=== PATIENT | male | born 1970 | race Caucasian/White ===

== ENCOUNTER 2017-09-18 12:08 | Day surgery (SDC) | payer OTHER ==
[2017-09-18] MEDS ORDERED: NS 1,000 ML IV (13:00)
[2017-09-18] MEDS ORDERED: PROPOFOL 200 MG/20 ML VIAL As Ordered ×2 (13:33→14:16)
== END 2017-09-18 15:03 | disposition home or self-care (01) ==
LOC: M OPP 12:08
DX: Z12.11 Encounter for screening for malignant neoplasm of colon (principal); D12.5 Benign neoplasm of sigmoid colon; D12.2 Benign neoplasm of ascending colon; C64.1 Malignant neoplasm of right kidney, except renal pelvis; M10.9 Gout, unspecified; N18.3 Chronic kidney disease, stage 3 (moderate); Z79.899 Other long term (current) drug therapy; Z80.3 Family history of malignant neoplasm of breast
CPT/HCPCS: 45385

== ENCOUNTER → 2017-11-10 | Outpatient (REF) | payer OTHER ==
[2017-11-10 12:30] LABS: PTH INTACT 41.9 PG/ML (18.5-88.0); TOTAL 25(OH) VITAMIN D 27.3 NG/ML (30.0-100.0)
[2017-11-10 12:59] LABS: ALBUMIN/GLOBULIN RATIO 1.18 (1.00-1.93); ALKALINE PHOSPHATASE 69 U/L (45-117); ALT/SGPT 60 U/L (12-78); ANION GAP 9 MEQ/L (8-16); AST/SGOT 30 U/L (7-37); BILIRUBIN,TOTAL 0.8 MG/DL (0.2-1.0); BLOOD UREA NITROGEN 19 MG/DL (7-18); C REACTIVE PROTEIN QUANTITATIV 0.66 MG/DL (0.00-0.30); CALCIUM LEVEL 8.8 MG/DL (8.5-10.1); CARBON DIOXIDE LEVEL 30 MEQ/L (21-32); CHLORIDE LEVEL 106 MEQ/L (98-107); CHOLESTEROL LEVEL 176 MG/DL (<200); CPK CREATINE PHOSPHOKINASE 178 U/L (39-308); CREATININE FOR GFR 1.45 MG/DL (0.70-1.30); FREE T4 0.87 NG/DL (0.76-1.46); GLOMERULAR FILTRATION RATE 55.1 (>60); GLUCOSE, FASTING 91 MG/DL (70-100); HDL CHOLESTEROL 44 MG/DL (>40); NON-HDL-C 132 MG/DL; POTASSIUM SERUM 4.5 MEQ/L (3.5-5.1); PSA SCREENING 0.54 NG/ML (< 4.0); SODIUM LEVEL 145 MEQ/L (136-145); TOTAL PROTEIN 7.4 GM/DL (6.4-8.2); TRIGLYCERIDES LEVEL 135 MG/DL (<150); URIC ACID 8.1 MG/DL (3.5-7.2)
== END ==
LOC: M SFHCPLAZ 09:07
DX: E78.5 Hyperlipidemia, unspecified (principal); E55.9 Vitamin D deficiency, unspecified; Z12.5 Encounter for screening for malignant neoplasm of prostate; M10.9 Gout, unspecified

== ENCOUNTER → 2018-04-02 | Outpatient (REF) | payer OTHER ==
[~2018-04-02] MED LIST: MULT1TAB10 PO; ULOR80TA PO; VITA100067 PO
[2018-04-02 14:05] LABS: ALBUMIN 3.9 GM/DL (3.2-5.2); CALCIUM LEVEL 8.9 MG/DL (8.5-10.1); CREATININE FOR GFR 1.43 MG/DL (0.70-1.30); PHOSPHORUS LEVEL 3.2 MG/DL (2.5-4.9); POTASSIUM SERUM 3.7 MEQ/L (3.5-5.1); URIC ACID 4.5 MG/DL (3.5-7.2)
== END ==
LOC: M SFHCPLAZ 13:12
PROVIDERS: ATTEND Family Medicine
DX: M10.9 Gout, unspecified (principal)

== ENCOUNTER → 2018-04-26 | Outpatient (CLI) | payer OTHER ==
[2018-04-26 19:23] LABS: BASO % 0.2 % (0.0-1.0); HEMATOCRIT 42.4 % (42.0-52.0); HEMOGLOBIN 14.6 g/dl (13.5-17.5); LYMPH # 1.1 10^3/uL (1.5-4.5); LYMPH % 12.8 % (24.0-44.0); MEAN CORPUSCULAR HEMOGLOBIN 29.9 pg (27.0-33.0); MEAN CORPUSCULAR HGB CONC 34.4 g/dl (32.0-36.5); MEAN CORPUSCULAR VOLUME 86.9 fl (80.0-96.0); MONO # 0.9 10^3/uL (0.0-0.8); MONO % 9.9 % (0.0-5.0); NEUTROPHILS # 6.8 10^3/uL (1.8-7.7); NEUTROPHILS % 76.3 % (36.0-66.0); PLATELET COUNT, AUTOMATED 214 10^3/uL (150-450); RED BLOOD COUNT 4.88 10^6/uL (4.30-6.10); WHITE BLOOD COUNT 8.9 10^3/uL (4.0-10.0)
[2018-04-26 19:50] LABS: ALT/SGPT 43 U/L (12-78); BILIRUBIN,TOTAL 0.4 MG/DL (0.2-1.0); BLOOD UREA NITROGEN 37 MG/DL (7-18); C REACTIVE PROTEIN QUANTITATIV < 0.30 MG/DL (0.00-0.30); CALCIUM LEVEL 9.1 MG/DL (8.5-10.1); CARBON DIOXIDE LEVEL 28 MEQ/L (21-32); CHLORIDE LEVEL 101 MEQ/L (98-107); CREATININE FOR GFR 1.47 MG/DL (0.70-1.30); GLOMERULAR FILTRATION RATE 54.2 (>60); GLUCOSE, FASTING 91 MG/DL (70-100); POTASSIUM SERUM 4.4 MEQ/L (3.5-5.1); RHEUMATOID FACTOR QUANT < 10.0 IU/ML (<15.0); SODIUM LEVEL 138 MEQ/L (136-145); TOTAL PROTEIN 7.4 GM/DL (6.4-8.2)
[2018-04-26 20:00] LABS: ERYTHROCYTE SEDIMENTATION RATE 11 mm/hr (0-15)
[2018-04-29 00:10] LABS: ANTINUCLEAR ANTIBODIES DIRECT Negative (Negative); CYCLIC CITRULLINATED PEPTIDE 7 units (0-19); Lyme Disease IgG/IgM Antibodie <0.91 ISR (0.00-0.90); Lyme Disease IgM Ab Quantitati <0.80 index (0.00-0.79)
== END ==
LOC: M LAB 17:45
PROVIDERS: ATTEND Nurse Practitioner Family
DX: R74.0 Nonspecific elevation of levels of transaminase and lactic acid dehydrogenase [LDH] (principal)

== ENCOUNTER 2018-05-07 15:34 | Inpatient (IN) | payer OTHER ==
[~2018-05-07] VITALS: Ht 184.2 cm; Wt 108.2 kg
[~2018-05-07 15:34] MED LIST changes: -DICL1GEL TOP; -PRED25TA PO
[2018-05-07] MEDS ORDERED: ONDANSETRON 4MG/2ML VIAL (J2405) IV PRN (16:00)
[2018-05-07] MEDS ORDERED: zolPIDEM TARTRATE 5 MG TAB PO PRN (16:00)
[2018-05-07] MEDS ORDERED: ACETAMINOPHEN 500 MG TAB PO PRN (16:00)
[2018-05-07] MEDS ORDERED: LIDOCAINE 1% MDV 20ML VIAL As Ordered ONE (16:27)
[2018-05-07 17:09] VITALS: BP 140/80
[2018-05-07 17:58] LABS: BASO % 0.4 % (0.0-1.0); EOS # 0.1 10^3/uL (0.0-0.50); EOS % 0.7 % (0.0-3.0); HEMATOCRIT 45.6 % (42.0-52.0); HEMOGLOBIN 15.6 g/dl (13.5-17.5); LYMPH # 1.3 10^3/uL (1.5-4.5); LYMPH % 15.8 % (24.0-44.0); MEAN CORPUSCULAR HEMOGLOBIN 29.8 pg (27.0-33.0); MEAN CORPUSCULAR HGB CONC 34.2 g/dl (32.0-36.5); MEAN CORPUSCULAR VOLUME 87.2 fl (80.0-96.0); MONO # 0.7 10^3/uL (0.0-0.8); MONO % 8.1 % (0.0-5.0); NEUTROPHILS % 74.1 % (36.0-66.0); PLATELET COUNT, AUTOMATED 181 10^3/uL (150-450); RED BLOOD COUNT 5.23 10^6/uL (4.30-6.10); WHITE BLOOD COUNT 8.1 10^3/uL (4.0-10.0)
[2018-05-07 18:13] LABS: BILIRUBIN,TOTAL 0.8 MG/DL (0.2-1.0); CALCIUM LEVEL 8.8 MG/DL (8.5-10.1); CREATININE FOR GFR 1.54 MG/DL (0.70-1.30); GLOMERULAR FILTRATION RATE 51.4 (>60); PHOSPHORUS LEVEL 3.9 MG/DL (2.5-4.9); POTASSIUM SERUM 4.1 MEQ/L (3.5-5.1); TOTAL PROTEIN 7.6 GM/DL (6.4-8.2)
[2018-05-07 19:18] LABS: ERYTHROCYTE SEDIMENTATION RATE 9 mm/hr (0-15)
[2018-05-07 20:00] VITALS: BP 120/62
[2018-05-07] MEDS: PERCOCET 5MG/325MG TAB PO PRN (21:00)
[2018-05-08 04:00] VITALS: BP 127/72
[2018-05-08] MEDS: PERCOCET 5MG/325MG TAB PO PRN ×4 (04:08→21:40)
[2018-05-08 04:59] LABS: BASO % 0.3 % (0.0-1.0); EOS # 0.1 10^3/uL (0.0-0.50); EOS % 1.2 % (0.0-3.0); HEMATOCRIT 39.6 % (42.0-52.0); HEMOGLOBIN 13.2 g/dl (13.5-17.5); LYMPH # 1.2 10^3/uL (1.5-4.5); LYMPH % 19.3 % (24.0-44.0); MEAN CORPUSCULAR HEMOGLOBIN 29.5 pg (27.0-33.0); MEAN CORPUSCULAR HGB CONC 33.3 g/dl (32.0-36.5); MEAN CORPUSCULAR VOLUME 88.6 fl (80.0-96.0); MONO # 0.6 10^3/uL (0.0-0.8); MONO % 10.6 % (0.0-5.0); NEUTROPHILS # 4.1 10^3/uL (1.8-7.7); NEUTROPHILS % 67.8 % (36.0-66.0); PLATELET COUNT, AUTOMATED 152 10^3/uL (150-450); RED BLOOD COUNT 4.47 10^6/uL (4.30-6.10)
[2018-05-08 05:24] LABS: ERYTHROCYTE SEDIMENTATION RATE 22 mm/hr (0-15)
[2018-05-08 05:30] LABS: ALBUMIN 3.1 GM/DL (3.2-5.2); BILIRUBIN,TOTAL 0.4 MG/DL (0.2-1.0); C REACTIVE PROTEIN QUANTITATIV 1.93 MG/DL (0.00-0.30); CALCIUM LEVEL 8.5 MG/DL (8.5-10.1); CREATININE FOR GFR 1.52 MG/DL (0.70-1.30); GLOMERULAR FILTRATION RATE 52.2 (>60); POTASSIUM SERUM 4.2 MEQ/L (3.5-5.1); TOTAL PROTEIN 6.4 GM/DL (6.4-8.2)
[2018-05-08 08:00] VITALS: BP 133/86
[2018-05-08] MEDS: FEBUXOSTAT 40 MG TABLET (ULORIC) PO SCH (09:11)
[2018-05-08] MEDS: ENOXAPARIN 30 MG/0.3 ML SYR (J1650) SC SCH (09:12)
--- NOTE | 2018-05-08 15:51 | IPNPDOC ---
Subjective Date Seen The patient was seen on 05/08/18. Subjective Chief Complaint/HPI Knee pain Events since last encounter Keanu reports that his knee is a little better than when he was admitted. We are still waiting for the results of the joint cx before further treatment can be definitively planned. General: Reports: Normal Appetite Constitutional: Denies: Chills, Fever Pulmonary: Denies: Cough Cardiovascular: Denies: Chest Pain, Palpitations Genitourinary: Denies: Dysuria Musculoskeletal: Reports: Joint Pain (knee pain, specifically right over the patella and the quadricepts attachment) Psych: Reports: Mood Normal Objective Physical Examination General Exam: Positive: No Acute Distress Eye Exam: Positive: Conjunctiva & lids normal; Negative: Sclera icteric ENT Exam: Positive: Mucous membr. moist/pink Neck Exam: Negative: Lymphadenopathy Chest Exam: Positive: Clear to auscultation, Normal air movement Heart Exam: Positive: Rate Normal, Normal S1, Normal S2; Negative: Murmurs Abdomen Exam: Positive: Normal bowel sounds, Soft; Negative: Tenderness Extremity Exam: Positive: Tenderness (over the patella), Swelling (most consistent with a pre-patellar bursitis); Negative: Edema Psych Exam: Positive: Mood NL, Oriented x 3 Assessment /Plan Problems (1) Knee pain, left Status: Acute Response to Treatment: Improving Discussed With: Patient Problem Specific Plan: Monitor Clinically, Repeat Labs Problem Text: His pain is a little improved today, but not all that much. We are trying to determine if this is a joint infection, a gouty flare, or even a pre-patellar bursitis. The culture of the aspirated fluid is still pending. For now we will try a topical analgesic patch over the area to see if it helps. Plan/VTE VTE Prophylaxis Ordered?: Yes (Lovenox) VS, I&O, 24H, Fishbone Vital Signs/I&O Vital Signs Date Time Temp Pulse Resp B/P (MAP) Pulse Ox O2 Delivery O2 Flow Rate FiO2 05/08/18 09:55 18 Room Air 05/08/18 08:00 97.0 60 133/86 (102) 05/08/18 04:00 99 I&O- Last 24 Hours up to 6 AM 05/08/18 06:00 Intake Total 900 ml Output Total 0 ml Balance 900 ml Laboratory Data 24H LABS Laboratory Tests 2 05/07/18 17:28: Immature Granulocyte % (Auto) 0.9, White Blood Count 8.1, Red Blood Count 5.23, Hemoglobin 15.6, Hematocrit 45.6, Mean Corpuscular Volume 87.2, Mean Corpuscular Hemoglobin 29.8, Mean Corpuscular Hemoglobin Concent 34.2, Red Cell Distribution Width 13.0, Platelet Count 181, Neutrophils (%) (Auto) 74.1H, Lymphocytes (%) (Auto) 15.8L, Monocytes (%) (Auto) 8.1H, Eosinophils (%) (Auto) 0.7, Basophils (%) (Auto) 0.4, Neutrophils # (Auto) 6.0, Lymphocytes # (Auto) 1.3L, Monocytes # (Auto) 0.7, Eosinophils # (Auto) 0.1, Basophils # (Auto) 0.0, Nucleated Red Blood Cells % (auto) 0.0, Erythrocyte Sedimentation Rate 9, Anion Gap 9, Glomerular Filtration Rate 51.4L, Uric Acid 5.3, Blood Urea Nitrogen 20H, Creatinine 1.54H, Sodium Level 139, Potassium Level 4.1, Chloride Level 101, Carbon Dioxide Level 29, Calcium Level 8.8, Phosphorus Level 3.9, Aspartate Amino Transf (AST/SGOT) 26, Alanine Aminotransferase (ALT/SGPT) 57, Lactate Dehydrogenase 222, Total Creatine Kinase 96, Alkaline Phosphatase 65, Total Bilirubin 0.8, Triglycerides Level 159H, Cholesterol Level 245H, Total Protein 7.6, Albumin 4.0, C-Reactive Protein, Quantitative 1.37H, Albumin/Globulin Ratio 1.11 05/08/18 04:14: Immature Granulocyte % (Auto) 0.8, White Blood Count 6.0, Red Blood Count 4.47, Hemoglobin 13.2#L, Hematocrit 39.6L, Mean Corpuscular Volume 88.6, Mean Corpuscular Hemoglobin 29.5, Mean Corpuscular Hemoglobin Concent 33.3, Red Cell Distribution Width 13.1, Platelet Count 152, Neutrophils (%) (Auto) 67.8H, Lymphocytes (%) (Auto) 19.3L, Monocytes (%) (Auto) 10.6H, Eosinophils (%) (Auto) 1.2, Basophils (%) (Auto) 0.3, Neutrophils # (Auto) 4.1, Lymphocytes # (Auto) 1.2L, Monocytes # (Auto) 0.6, Eosinophils # (Auto) 0.1, Basophils # (Auto) 0.0, Nucleated Red Blood Cells % (auto) 0.0, Erythrocyte Sedimentation Rate 22H, Anion Gap 4L, Glomerular Filtration Rate 52.2L, Blood Urea Nitrogen 32#H, Creatinine 1.52H, Sodium Level 140, Potassium Level 4.2, Chloride Level 106, Carbon Dioxide Level 30, Calcium Level 8.5, Aspartate Amino Transf (AST/SGOT) 17, Alanine Aminotransferase (ALT/SGPT) 41, Alkaline Phosphatase 64, Total Bilirubin 0.4, Total Protein 6.4, Albumin 3.1#L, C-Reactive Protein, Quantitative 1.93H, Albumin/Globulin Ratio 0.94L CBC/BMP Laboratory Tests 05/07/18 17:28 Red Blood Count 5.23, Mean Corpuscular Volume 87.2, Mean Corpuscular Hemoglobin 29.8, Mean Corpuscular Hemoglobin Concent 34.2, Red Cell Distribution Width 13.0, Neutrophils (%) (Auto) 74.1 H, Lymphocytes (%) (Auto) 15.8 L, Monocytes (%) (Auto) 8.1 H, Eosinophils (%) (Auto) 0.7, Basophils (%) (Auto) 0.4, Neutrophils # (Auto) 6.0, Lymphocytes # (Auto) 1.3 L, Monocytes # (Auto) 0.7, Eosinophils # (Auto) 0.1, Basophils # (Auto) 0.0, Calcium Level 8.8, Phosphorus Level 3.9, Aspartate Amino Transf (AST/SGOT) 26, Alanine Aminotransferase (ALT/SGPT) 57, Lactate Dehydrogenase 222, Total Creatine Kinase 96, Alkaline Phosphatase 65, Total Bilirubin 0.8, Triglycerides Level 159 H, Cholesterol Level 245 H, Total Protein 7.6, Albumin 4.0 05/08/18 04:14 Red Blood Count 4.47, Mean Corpuscular Volume 88.6, Mean Corpuscular Hemoglobin 29.5, Mean Corpuscular Hemoglobin Concent 33.3, Red Cell Distribution Width 13.1, Neutrophils (%) (Auto) 67.8 H, Lymphocytes (%) (Auto) 19.3 L, Monocytes (%) (Auto) 10.6 H, Eosinophils (%) (Auto) 1.2, Basophils (%) (Auto) 0.3, Neutrop hils # (Auto) 4.1, Lymphocytes # (Auto) 1.2 L, Monocytes # (Auto) 0.6, Eosinophils # (Auto) 0.1, Basophils # (Auto) 0.0, Calcium Level 8.5, Aspartate Amino Transf (AST/SGOT) 17, Alanine Aminotransferase (ALT/SGPT) 41, Alkaline Phosphatase 64, Total Bilirubin 0.4, Total Protein 6.4, Albumin 3.1 #L Microbiology Microbiology 05/07/18 Blood Culture, Received Pending 05/07/18 Blood Culture, Received Pending Frank Torres MD May 08, 2018 15:51
[2018-05-08 15:56] VITALS: BP 136/80
[2018-05-08] MEDS: DICLOFENAC EPOLAMINE 1.3 % PATCH TOP SCH (17:59)
[2018-05-08 20:00] VITALS: BP 157/95
[2018-05-09 04:00] VITALS: BP 126/94
[2018-05-09] MEDS: PERCOCET 5MG/325MG TAB PO PRN (04:59)
[2018-05-09] MEDS: DICLOFENAC EPOLAMINE 1.3 % PATCH TOP SCH (04:59)
[2018-05-09 05:47] LABS: BASO % 0.5 % (0.0-1.0); EOS # 0.1 10^3/uL (0.0-0.50); EOS % 1.6 % (0.0-3.0); HEMATOCRIT 41.2 % (42.0-52.0); HEMOGLOBIN 13.8 g/dl (13.5-17.5); LYMPH # 1.1 10^3/uL (1.5-4.5); LYMPH % 19.6 % (24.0-44.0); MEAN CORPUSCULAR HEMOGLOBIN 29.7 pg (27.0-33.0); MEAN CORPUSCULAR HGB CONC 33.5 g/dl (32.0-36.5); MEAN CORPUSCULAR VOLUME 88.8 fl (80.0-96.0); MONO # 0.6 10^3/uL (0.0-0.8); MONO % 9.5 % (0.0-5.0); NEUTROPHILS # 3.9 10^3/uL (1.8-7.7); NEUTROPHILS % 67.9 % (36.0-66.0); PLATELET COUNT, AUTOMATED 143 10^3/uL (150-450); RED BLOOD COUNT 4.64 10^6/uL (4.30-6.10); WHITE BLOOD COUNT 5.8 10^3/uL (4.0-10.0)
[2018-05-09 06:03] LABS: ALBUMIN 3.2 GM/DL (3.2-5.2); C REACTIVE PROTEIN QUANTITATIV 1.6 MG/DL (0.00-0.30); CALCIUM LEVEL 8.4 MG/DL (8.5-10.1); CREATININE FOR GFR 1.51 MG/DL (0.70-1.30); GLOMERULAR FILTRATION RATE 52.5 (>60); PHOSPHORUS LEVEL 3.2 MG/DL (2.5-4.9); POTASSIUM SERUM 4.6 MEQ/L (3.5-5.1)
[2018-05-09 06:13] LABS: ERYTHROCYTE SEDIMENTATION RATE 17 mm/hr (0-15)
[2018-05-09 08:00] VITALS: BP 128/70
[2018-05-09] MEDS: ENOXAPARIN 30 MG/0.3 ML SYR (J1650) SC SCH (09:00)
[2018-05-09] MEDS: FEBUXOSTAT 40 MG TABLET (ULORIC) PO SCH (09:19)
[2018-05-09] MEDS ORDERED: DICL1GEL TOP (12:53)
[2018-05-09] MEDS ORDERED: PRED25TA PO (12:53)
--- NOTE | 2018-05-09 13:03 | DS.PDOC ---
Discharge Summary General Date of Admission May 07, 2018 at 16:04 Date of Discharge 05/09/18 Primary Care Physician: Padilla Sharp M.D. Attending Physician: Frank Torres MD Specialist/Consultants Involve Interventional Radiology (tapped the joint before admission) Discharge Summary ADMITTING DIAGNOSES: 1. Synovitis of the left knee. 2. Gout. 3. History of renal cell carcinoma with CKD 3. 4. Obesity. 5. History of colonic polyps. 6. Vitamin D deficiency. 7. Hyperlipidemia. DISCHARGE DIAGNOSES: 1. Left prepatellar bursitis. 2. Gout. PROCEDURES PERFORMED DURING STAY: The knee was drained by interventional radiology just prior to admission. The culture of this fluid was used for clinical decision making. ADMISSION HISTORY: Mr. uL was admitted about one week after he received a joint injection for knee pain favoring acute monoarticular gouty flare. Please see the admission history and physical for the remaining details. HOSPITAL COURSE: The patient was sent to the hospital and his need to was tapped that fluid was cultured. While the culture was pending he was admitted. Fortunately that culture was negative by 48 hours. During the time he was admitted he became clear that a prepatellar bursitis was causing a significant portion of his pain. I do believe the patient originally started with a gouty flare, however, I think the injection in the office may have halted that. DISCHARGE CONDITION: Stable. FOLLOW-UP: Prior to discharge an appointment was scheduled with Dr. Sharp on May 18 at 9:45 AM. DIET: Renal low purine diet. ACTIVITY: As tolerated. DISCHARGE MEDICATIONS: Please see below. ALLERGIES: Please see below. LABORATORY DATA: Please see below. IMAGING: None during this admission specifically. Vital Signs/I&Os Vital Signs Date Time Temp Pulse Resp B/P (MAP) Pulse Ox O2 Delivery O2 Flow Rate FiO2 05/09/18 08:00 97.1 66 18 128/70 (89) 98 Room Air I&O- Last 24 Hours up to 6 AM 05/09/18 06:00 Intake Total 1580 ml Output Total 0 ml Balance 1580 ml Laboratory Data Labs 24H Laboratory Tests 2 05/09/18 04:49: Immature Granulocyte % (Auto) 0.9, White Blood Count 5.8, Red Blood Count 4.64, Hemoglobin 13.8, Hematocrit 41.2L, Mean Corpuscular Volume 88.8, Mean Corpuscular Hemoglobin 29.7, Mean Corpuscular Hemoglobin Concent 33.5, Red Cell Distribution Width 12.9, Platelet Count 143L, Neutrophils (%) (Auto) 67.9H, Lymphocytes (%) (Auto) 19.6L, Monocytes (%) (Auto) 9.5H, Eosinophils (%) (Auto) 1.6, Basophils (%) (Auto) 0.5, Neutrophils # (Auto) 3.9, Lymphocytes # (Auto) 1.1L, Monocytes # (Auto) 0.6, Eosinophils # (Auto) 0.1, Basophils # (Auto) 0.0, Nucleated Red Blood Cells % (auto) 0.0, Erythrocyte Sedimentation Rate 17H, Blood Urea Nitrogen 23H, Creatinine 1.51H, Sodium Level 140, Potassium Level 4.6, Chloride Level 105, Carbon Dioxide Level 31, Anion Gap 4L, Glomerular Filtration Rate 52.5L, Calcium Level 8.4L, Phosphorus Level 3.2, C-Reactive Protein, Quantitative 1.60H, Albumin 3.2 CBC/BMP Laboratory Tests 05/09/18 04:49 Red Blood Count 4.64, Mean Corpuscular Volume 88.8, Mean Corpuscular Hemoglobin 29.7, Mean Corpuscular Hemoglobin Concent 33.5, Red Cell Distribution Width 12.9, Neutrophils (%) (Auto) 67.9 H, Lymphocytes (%) (Auto) 19.6 L, Monocytes (%) (Auto) 9.5 H, Eosinophils (%) (Auto) 1.6, Basophils (%) (Auto) 0.5, Neutrophils # (Auto) 3.9, Lymphocytes # (Auto) 1.1 L, Monocytes # (Auto) 0.6, Eosinophils # (Auto) 0.1, Basophils # (Auto) 0.0, Anion Gap 4 L Microbiology Microbiology 05/07/18 Blood Culture - Preliminary, Resulted No growth after 24 hours . All specim... 05/07/18 Blood Culture - Preliminary, Resulted No growth after 24 hours . All specim... Discharge Medications Scheduled (Diclofenac Sodium) 3 % Gel, 1 APLCT TOP BID for to left knee Febuxostat (Uloric) 80 Mg Tab, 80 MG PO DAILY, (Reported) Multivitamins (Multivitamin Adults) 1 Tab Tab, 1 TAB PO DAILY, (Reported) Prednisone (Prednisone) 2.5 Mg Tab, 1 TAB PO DAILY Vitamin D (Vitamin D) 1,000 Unit Cap, 1,000 UNIT PO DAILY, (Reported) Allergies Coded Allergies: No Known Drug Allergy (Unverified Allergy, Unknown, 09/04/17) Frank Torres MD May 09, 2018 13:03
[2018-05-09] MEDS ORDERED: DICLOFENAC EPOLAMINE 1.3 % PATCH TOP ONE (14:00)
[2018-05-10 14:49] LABS: Lyme Disease IgG/IgM Antibodie <0.91 ISR (0.00-0.90); Lyme Disease IgM Ab Quantitati <0.80 index (0.00-0.79)
== END 2018-05-09 14:30 | disposition home or self-care (01) | DRG 351 ==
LOC: M PCU 16:04
PROVIDERS: ADMIT Family Medicine; ATTEND Family Medicine
DX: M70.42 Prepatellar bursitis, left knee (principal); E55.9 Vitamin D deficiency, unspecified; N18.3 Chronic kidney disease, stage 3 (moderate); M10.9 Gout, unspecified; E78.5 Hyperlipidemia, unspecified; E66.9 Obesity, unspecified; Z85.528 Personal history of other malignant neoplasm of kidney; Z79.899 Other long term (current) drug therapy

== ENCOUNTER → 2018-05-07 | Outpatient (CLI) | payer OTHER ==
[~2018-05-07] MED LIST changes: +DICL1GEL TOP; +PRED25TA PO
[2018-05-07 17:36] LABS: MUCIN CLOT TEST 4+ (4+)
[2018-05-07 17:41] LABS: CRYSTALS, BODY FLUID NONE SEEN (NONE SEEN); SOURCE, BODY FLUID CRYSTALS LFT KNEE
[2018-05-07 17:52] LABS: SOURCE, BODY FLUID GLUCOSE LFT KNEE; SOURCE, BODY FLUID TOT PROTEIN LFT KNEE; SOURCE, BODY FLUID URIC ACID LFT KNEE; URIC ACID, BODY FLUID 6.2 MG/DL (NOT ESTABLISHED)
[2018-05-07 18:53] LABS: APPEARANCE, BODY FLUID CLOUDY
--- NOTE | 2018-05-10 16:37 | REP ---
ULTRASOUND-GUIDED LEFT KNEE ASPIRATION The procedure was performed under the direct supervision of Dr. Jones. The risks and benefits of the procedure were explained to the patient and informed consent was obtained. The largest fluid collection in the medial left knee was localized using ultrasound guidance. The skin was prepped and draped in a sterile fashion. 1% lidocaine was used as a local anesthetic. Using ultrasound guidance a 5-Kyr[place] centesis catheter was inserted and 11 ml of pink colored fluid was withdrawn and sent to the lab for analysis. The patient tolerated the procedure well and there were no immediate complications. Reviewed by DEZ Tai 05/10/2018 04:09 P Electronically Signed by Surjit Jones MD 05/10/2018 04:28 P
== END ==
LOC: M RADPRO 15:58
PROVIDERS: ATTEND Family Medicine
DX: M71.20 Synovial cyst of popliteal space [Baker], unspecified knee (principal)

== ENCOUNTER → 2018-07-09 | Outpatient (REF) | payer OTHER ==
[~2018-07-09] MED LIST changes: +DICL1GEL TOP; +PRED25TA PO
[2018-07-09 14:56] LABS: ALBUMIN 4.1 GM/DL (3.2-5.2); CREATININE FOR GFR 1.44 MG/DL (0.70-1.30); GLOMERULAR FILTRATION RATE 55.5 (>60); PHOSPHORUS LEVEL 2.8 MG/DL (2.5-4.9); POTASSIUM SERUM 4.3 MEQ/L (3.5-5.1); URIC ACID 5.8 MG/DL (3.5-7.2)
== END ==
LOC: M SFHCPLAZ 12:57
PROVIDERS: ATTEND Nurse Practitioner Family
DX: M10.9 Gout, unspecified (principal)

== ENCOUNTER → 2019-04-19 | Outpatient (CLI) | payer OTHER | LOC: M PLALAB 09:02 | PROVIDERS: ATTEND Urology | DX: C64.1 Malignant neoplasm of right kidney, except renal pelvis (principal) ==

== ENCOUNTER → 2020-06-01 | Outpatient (REF) | payer BC | LOC: M PLALAB 15:44 | PROVIDERS: ATTEND Urology | DX: N40.0 Benign prostatic hyperplasia without lower urinary tract symptoms (principal) ==

== ENCOUNTER → 2020-06-01 | Outpatient (REF) | payer BC ==
[2020-06-01 16:09] LABS: HEMOGLOBIN A1c 5.3 %
[2020-06-01 16:24] LABS: ALBUMIN 3.9 GM/DL (3.2-5.2); BILIRUBIN,TOTAL 0.9 MG/DL (0.2-1.0); CALCIUM LEVEL 9.2 MG/DL (8.5-10.1); CHOLESTEROL RISK RATIO 4.145 (<5); CREATININE FOR GFR 1.41 MG/DL (0.70-1.30); FREE T4 0.9 NG/DL (0.76-1.46); GLOMERULAR FILTRATION RATE 56.4 (>56); POTASSIUM SERUM 4.1 MEQ/L (3.5-5.1); PTH INTACT 39.4 PG/ML (18.5-88.0); THYROID STIMULATING HORMONE 1.38 uIU/ML (0.358-3.740); TOTAL 25(OH) VITAMIN D 30.2 NG/ML (30.0-100.0); TOTAL PROTEIN 7.3 GM/DL (6.4-8.2); URIC ACID 8.8 MG/DL (3.5-7.2)
== END ==
LOC: M SFHCPLAZ 12:53
PROVIDERS: ATTEND Family Medicine
DX: R73.01 Impaired fasting glucose (principal); M10.9 Gout, unspecified; E55.9 Vitamin D deficiency, unspecified; E78.5 Hyperlipidemia, unspecified

== ENCOUNTER → 2020-09-11 | Outpatient (REF) | payer BC ==
[2020-09-11 13:25] LABS: BASO % 0.7 % (0.0-1.0); EOS # 0.1 10^3/uL (0.0-0.5); HEMATOCRIT 42.8 % (42.0-52.0); HEMOGLOBIN 14.9 g/dl (13.5-17.5); LYMPH # 1.2 10^3/uL (1.5-5.0); LYMPH % 29.6 % (24.0-44.0); MEAN CORPUSCULAR HGB CONC 34.8 g/dl (32.0-36.5); MEAN CORPUSCULAR VOLUME 86.1 fl (80.0-96.0); MONO # 0.5 10^3/uL (0.0-0.8); NEUTROPHILS # 2.3 10^3/uL (1.5-8.5); NEUTROPHILS % 56.5 % (36.0-66.0); PLATELET COUNT, AUTOMATED 182 10^3/uL (150-450); RED BLOOD COUNT 4.97 10^6/uL (4.30-6.10); WHITE BLOOD COUNT 4.1 10^3/uL (4.0-10.0)
[2020-09-11 13:51] LABS: ALBUMIN 4.1 GM/DL (3.2-5.2); CALCIUM LEVEL 9.1 MG/DL (8.5-10.1); CREATININE FOR GFR 1.47 MG/DL (0.70-1.30); GLOMERULAR FILTRATION RATE 53.8 (>56); PHOSPHORUS LEVEL 3.4 MG/DL (2.5-4.9); POTASSIUM SERUM 4.3 MEQ/L (3.5-5.1); URIC ACID 6.2 MG/DL (3.5-7.2)
[2020-09-11 13:58] LABS: TOTAL PROTEIN,RANDOM URINE 19.2 MG/DL (0.0-12.0)
== END ==
LOC: M SFHCPLAZ 09:32
PROVIDERS: ATTEND Family Medicine
DX: M10.9 Gout, unspecified (principal); N18.30 Chronic kidney disease, stage 3 unspecified

== ENCOUNTER → 2020-12-12 | Outpatient (CLI) | payer BC | LOC: M LAB 09:47 | PROVIDERS: ATTEND Urology | DX: C64.1 Malignant neoplasm of right kidney, except renal pelvis (principal) ==

== ENCOUNTER → 2021-03-18 | Outpatient (CLI) | payer BC | LOC: M LABSMTC 11:06 | PROVIDERS: ATTEND Anesthesiology | DX: Z01.812 Encounter for preprocedural laboratory examination (principal); Z20.822 Contact with and (suspected) exposure to COVID-19 ==

== ENCOUNTER 2021-03-22 09:35 | Day surgery (SDC) | payer BC ==
[~2021-03-22] VITALS: Ht 182.9 cm; Wt 104.3 kg
[~2021-03-22 09:35] MED LIST changes: +NS 1,000 ML IV ONE
[2021-03-22] MEDS ORDERED: propofoL 200 MG/20 ML VIAL As Ordered ONE (09:54)
[2021-03-22] MEDS ORDERED: LIDOCAINE 2% 100MG/5ML SDV (FOR ANES.) As Ordered ONE (09:54)
[2021-03-22 11:50] VITALS: BP 131/86
== END 2021-03-22 12:06 | disposition home or self-care (01) ==
LOC: M OPP 09:35
PROVIDERS: ATTEND Internal Medicine Gastroenterology
DX: Z12.11 Encounter for screening for malignant neoplasm of colon (principal); Z86.010 Personal history of colon polyps; K63.5 Polyp of colon; K64.8 Other hemorrhoids; Z79.899 Other long term (current) drug therapy; Z85.528 Personal history of other malignant neoplasm of kidney

== ENCOUNTER → 2021-05-13 | Outpatient (CLI) | payer BC ==
[~2021-05-13] MED LIST changes: -NS 1,000 ML IV ONE
[2021-05-13 15:15] LABS: BASO # 0.1 10^3/uL (0.0-0.2); BASO % 0.8 % (0.0-1.0); EOS # 0.1 10^3/uL (0.0-0.5); EOS % 1.4 % (0.0-3.0); HEMATOCRIT 41.9 % (42.0-52.0); HEMOGLOBIN 14.6 g/dl (13.5-17.5); LYMPH # 1.5 10^3/uL (1.5-5.0); LYMPH % 24.2 % (24.0-44.0); MEAN CORPUSCULAR HEMOGLOBIN 29.5 pg (27.0-33.0); MEAN CORPUSCULAR HGB CONC 34.8 g/dl (32.0-36.5); MEAN CORPUSCULAR VOLUME 84.6 fl (80.0-96.0); MONO # 0.6 10^3/uL (0.0-0.8); MONO % 9.1 % (2.0-8.0); NEUTROPHILS % 64.2 % (36.0-66.0); PLATELET COUNT, AUTOMATED 181 10^3/uL (150-450); RED BLOOD COUNT 4.95 10^6/uL (4.30-6.10); WHITE BLOOD COUNT 6.2 10^3/uL (4.0-10.0)
[2021-05-13 15:49] LABS: ALBUMIN 3.9 GM/DL (3.2-5.2); CALCIUM LEVEL 9.3 MG/DL (8.5-10.1); CREATININE FOR GFR 1.5 MG/DL (0.70-1.30); GLOMERULAR FILTRATION RATE 52.3 (>56); PHOSPHORUS LEVEL 3.8 MG/DL (2.5-4.9); POTASSIUM SERUM 4.3 MEQ/L (3.5-5.1); URIC ACID 6.4 MG/DL (3.5-7.2)
[2021-05-13 15:54] LABS: PTH INTACT 44.2 PG/ML (18.5-88.0); TOTAL 25(OH) VITAMIN D 34.7 NG/ML (30.0-100.0)
== END ==
LOC: M PLALAB 13:57
PROVIDERS: ATTEND Family Medicine
DX: M10.9 Gout, unspecified (principal); N18.30 Chronic kidney disease, stage 3 unspecified

== ENCOUNTER → 2021-08-02 | Outpatient (CLI) | payer BC | LOC: M RAD 16:23 | PROVIDERS: ATTEND Urology | DX: C64.1 Malignant neoplasm of right kidney, except renal pelvis (principal) ==

== ENCOUNTER → 2022-03-28 | Outpatient (CLI) | payer BC ==
[~2022-03-28] MED LIST changes: -DICL1GEL TOP; +DICL3GEL2 TOP
[2022-03-28 13:30] LABS: URIC ACID 9.1 MG/DL (3.7-9.2)
[2022-03-28 13:31] LABS: CREATININE, URINE 169.6 MG/DL
[2022-03-28 13:32] LABS: MAU/CREAT RATIO 71.3 MCG/MG (0.0-30.0)
[2022-03-28 13:33] LABS: CALCIUM LEVEL 9.6 MG/DL (8.5-10.1); CHOLESTEROL RISK RATIO 4.69 (<5); CREATININE FOR GFR 1.54 MG/DL (0.70-1.30); GLOMERULAR FILTRATION RATE 50.6 (>56); HDL CHOLESTEROL 37.5 MG/DL (>40); LDL CHOLESTEROL 106.9 MG/DL (<100); POTASSIUM SERUM 4.6 MMOL/L (3.5-5.1); PTH INTACT 32.2 PG/ML (18.5-88.0); TOTAL PROTEIN 7.6 G/DL (5.7-8.2)
[2022-03-28 13:35] LABS: TOTAL 25(OH) VITAMIN D 37.8 NG/ML (20.0-100.0)
== END ==
LOC: M PLALAB 11:33
PROVIDERS: ATTEND Physician Assistant Medical
DX: R73.01 Impaired fasting glucose (principal); C64.1 Malignant neoplasm of right kidney, except renal pelvis; M10.9 Gout, unspecified; E55.9 Vitamin D deficiency, unspecified; Z12.5 Encounter for screening for malignant neoplasm of prostate; E78.5 Hyperlipidemia, unspecified; N18.30 Chronic kidney disease, stage 3 unspecified
CPT/HCPCS: 36415; 80053; 80061; 82043; 82306; 83036; 83970; 84550; G0103

== ENCOUNTER → 2022-09-24 | Outpatient (REF) | payer BC | LOC: M SFHCPLAZ 13:35 | PROVIDERS: ATTEND Family Medicine | DX: Z53.9 Procedure and treatment not carried out, unspecified reason (principal) ==

== ENCOUNTER → 2022-12-30 | Outpatient (CLI) | payer BC | LOC: M RAD 08:08 | PROVIDERS: ATTEND Physician Assistant Medical | DX: N40.0 Benign prostatic hyperplasia without lower urinary tract symptoms (principal); C64.1 Malignant neoplasm of right kidney, except renal pelvis ==

== ENCOUNTER → 2024-01-29 | Outpatient (CLI) | payer OTHER ==
[2024-01-29 13:11] LABS: PROSTATIC SPECIFIC AG MONITOR 0.53 NG/ML (< 4.00)
[2024-01-29 13:13] LABS: CALCIUM LEVEL 9.8 MG/DL (8.5-10.1); CREATININE FOR GFR 1.44 MG/DL (0.70-1.30); GLOMERULAR FILTRATION RATE 54.2 (>56); POTASSIUM SERUM 4.9 MMOL/L (3.5-5.1)
== END ==
LOC: M PLALAB 10:59
PROVIDERS: ATTEND Urology
DX: C64.1 Malignant neoplasm of right kidney, except renal pelvis (principal); N40.0 Benign prostatic hyperplasia without lower urinary tract symptoms

== ENCOUNTER → 2024-07-26 | Outpatient (CLI) | payer OTHER ==
[2024-07-26 13:19] LABS: ALBUMIN 4.5 G/DL (3.2-5.2); BILIRUBIN,TOTAL 0.7 MG/DL (0.3-1.2); CALCIUM LEVEL 9.5 MG/DL (8.5-10.1); CHOLESTEROL RISK RATIO 4.88 (<5); CREATININE FOR GFR 1.56 MG/DL (0.70-1.30); GLOMERULAR FILTRATION RATE 52.1 (>56); HDL CHOLESTEROL 39.7 MG/DL (>40); LDL CHOLESTEROL 120.1 MG/DL (<100); NON-HDL-C 154.3 MG/DL; POTASSIUM SERUM 4.2 MMOL/L (3.5-5.1); PSA SCREENING 0.53 NG/ML (< 4.00); PTH INTACT 42.7 PG/ML (18.5-88.0); TOTAL PROTEIN 7.7 G/DL (5.7-8.2)
[2024-07-26 13:21] LABS: BASO % 0.7 % (0.0-1.0); EOS # 0.1 10^3/uL (0.0-0.5); EOS % 1.7 % (0.0-3.0); HEMATOCRIT 45.1 % (42.0-52.0); HEMOGLOBIN 15.7 g/dl (13.5-17.5); LYMPH # 1.4 10^3/uL (1.5-5.0); LYMPH % 23.9 % (24.0-44.0); MEAN CORPUSCULAR HEMOGLOBIN 29.5 pg (27.0-33.0); MEAN CORPUSCULAR HGB CONC 34.8 g/dl (32.0-36.5); MEAN CORPUSCULAR VOLUME 84.6 fl (80.0-96.0); MONO # 0.5 10^3/uL (0.0-0.8); MONO % 8.5 % (2.0-8.0); NEUTROPHILS # 3.7 10^3/uL (1.5-8.5); NEUTROPHILS % 64.7 % (36.0-66.0); PLATELET COUNT, AUTOMATED 191 10^3/uL (150-450); RED BLOOD COUNT 5.33 10^6/uL (4.30-6.10); WHITE BLOOD COUNT 5.7 10^3/uL (4.0-10.0)
[2024-07-26 13:23] LABS: TOTAL 25(OH) VITAMIN D 34.5 NG/ML (20.0-100.0)
[2024-07-26 13:27] LABS: URIC ACID 9.8 MG/DL (3.7-9.2)
[2024-07-26 13:32] LABS: TOTAL PROTEIN,RANDOM URINE 26.5 MG/DL (0.0-14.0)
[2024-07-26 13:37] LABS: CREATININE,RANDOM URINE 238.3 MG/DL
[2024-07-28 09:27] LABS: INSULIN LEVEL 53.6 uIU/mL (<=18.4)
== END ==
LOC: M PLALAB 09:41
PROVIDERS: ATTEND Family Medicine
DX: N18.31 Chronic kidney disease, stage 3a (principal)

== ENCOUNTER → 2024-07-26 | Outpatient (REF) | payer OTHER | LOC: M SFHCPLAZ 09:23 | PROVIDERS: ATTEND Family Medicine | DX: Z53.9 Procedure and treatment not carried out, unspecified reason (principal) ==

== ENCOUNTER → 2025-02-09 | Outpatient (CLI) | payer OTHER ==
[~2025-02-09] MED LIST changes: +DICL3GEL13 TOP; -DICL3GEL2 TOP
[2025-02-09 11:15] LABS: BASO # 0.1 10^3/uL (0.0-0.2); BASO % 0.7 % (0.0-1.0); EOS # 0.0 10^3/uL (0.0-0.5); EOS % 0.4 % (0.0-3.0); LYMPH # 2.0 10^3/uL (1.5-5.0); LYMPH % 27.5 % (24.0-44.0); MONO # 0.6 10^3/uL (0.0-0.8); MONO % 7.8 % (2.0-8.0); NEUTROPHILS # 4.7 10^3/uL (1.5-8.5); NEUTROPHILS % 63.2 % (36.0-66.0); PLATELET COUNT, AUTOMATED 206 10^3/uL (150-450)
[2025-02-09 11:21] LABS: ALT/SGPT 66 U/L (7.0-40); AST/SGOT 41 U/L (<34); CALCIUM LEVEL 9.4 MG/DL (8.5-10.1); CARBON DIOXIDE LEVEL 31 MMOL/L (20-31); CHLORIDE LEVEL 104 MMOL/L (98-107); CREATININE FOR GFR 1.35 MG/DL (0.70-1.30); GLOMERULAR FILTRATION RATE 61.6 (>56); IRON (FE) 96 UG/DL (65-175); PERCENT SATURATION 34.3 % (19.7-50.0); POTASSIUM SERUM 4.4 MMOL/L (3.5-5.1); SODIUM LEVEL 143 MMOL/L (136-145)
[2025-02-09 12:01] LABS: HEPATITIS C VIRUS ABY INDEX < 0.02 INDEX (<0.8)
== END ==
LOC: M PLALAB 08:05
PROVIDERS: ATTEND Family Medicine
DX: N18.31 Chronic kidney disease, stage 3a (principal); K74.00 Hepatic fibrosis, unspecified

== ENCOUNTER → 2025-02-09 | Outpatient (CLI) | payer OTHER ==
[2025-02-09 11:19] LABS: CALCIUM LEVEL 9.5 MG/DL (8.5-10.1); CARBON DIOXIDE LEVEL 31.0 MMOL/L (20-31); CHLORIDE LEVEL 106.0 MMOL/L (98-107); CREATININE FOR GFR 1.35 MG/DL (0.70-1.30); GLOMERULAR FILTRATION RATE 61.6 (>56); POTASSIUM SERUM 4.4 MMOL/L (3.5-5.1); PROSTATIC SPECIFIC AG MONITOR 0.49 NG/ML (< 4.00); SODIUM LEVEL 146.0 MMOL/L (136-145)
== END ==
LOC: M PLALAB 08:03
PROVIDERS: ATTEND Urology
DX: N40.0 Benign prostatic hyperplasia without lower urinary tract symptoms (principal)